=== PATIENT | female | born 1980 | race Caucasian/White ===

== ENCOUNTER 2016-09-06 20:47 | Emergency (ER) | payer SELFPAY | END 2016-09-06 23:38 | disposition home or self-care (01) | LOC: D.ER 20:47 | DX: S60.212A Contusion of left wrist, initial encounter (principal); V43.52XA Car driver injured in collision with other type car in traffic accident, initial encounter; Y93.89 Activity, other specified; Y92.410 Unspecified street and highway as the place of occurrence of the external cause; S50.12XA Contusion of left forearm, initial encounter; S63.502A Unspecified sprain of left wrist, initial encounter; F17.200 Nicotine dependence, unspecified, uncomplicated ==

== ENCOUNTER 2019-01-16 14:34 | Emergency (ER) | payer OTHER ==
[~2019-01-16] VITALS: Ht 157.5 cm; Wt 136.4 kg
[2019-01-16 14:40] VITALS: Ht 157.5 cm; Wt 136.4 kg
[2019-01-16] MEDS ORDERED: NEXIUM20 MG PO (14:42)
[2019-01-16] MEDS ORDERED: IBUPROFEN400 MG PO (14:42)
[2019-01-16] MEDS ORDERED: ULTRAM50 MG PO (15:21)
[2019-01-16 16:11] VITALS: BP 130/83
[2019-02-12] MEDS ORDERED: MUCINEX600 MG PO (08:10)
[2019-02-13 07:10] VITALS: Ht 157.5 cm; Wt 136.4 kg
== END 2019-01-16 16:12 | disposition home or self-care (01) ==
LOC: D.ER 14:34
DX: S83.91XA Sprain of unspecified site of right knee, initial encounter (principal); X50.1XXA Overexertion from prolonged static or awkward postures, initial encounter; Y93.9 Activity, unspecified; M25.461 Effusion, right knee

== ENCOUNTER → 2019-01-26 08:31 | Outpatient (CLI) | payer OTHER ==
[2019-01-16 14:40] VITALS: BMI 55.0
[~2019-01-26 08:31] MED LIST: IBUPROFEN400 MG PO; MUCINEX600 MG PO; NEXIUM20 MG PO; PERCOCET 5-3251 TAB PO; ULTRAM50 MG PO
[2019-02-13 07:10] VITALS: BMI 55.0
== END | disposition home or self-care (01) ==
LOC: D.MRI 08:31
PROVIDERS: ATTEND Nurse Practitioner Family
DX: S83.411A Sprain of medial collateral ligament of right knee, initial encounter (principal)

== ENCOUNTER 2019-02-13 06:20 | Day surgery (SDC) | payer OTHER ==
[2019-02-12 08:39] LABS: HEMATOCRIT 44.4 % (36.0-48.0); HEMOGLOBIN 14.7 g/dL (12-16); MCH 30.2 pg (26.0-34.0); MCHC 33.1 g/dL (31.0-37.0); MCV 91.4 fL (80.0-100.0); MEAN PLATELET VOLUME 10.2 fL (7.4-10.4); RBC 4.86 10x6/uL (4.00-5.40); RDW 13.1 % (11.5-14.5); WBC 9.1 10x3/uL (4.8-10.8)
[~2019-02-13] VITALS: Ht 157.5 cm; Wt 136.1 kg
[~2019-02-13 06:20] MED LIST changes: -PERCOCET 5-3251 TAB PO
[2019-02-13 07:10] VITALS: BP 148/94; Ht 157.5 cm; Wt 136.1 kg
--- NOTE | 2019-02-13 08:40 | NUR ---
TQ APPLIED BUT NOT USED DURING THE PROCEDURE
[2019-02-13] MEDS ORDERED: PERCOCET 5-3251 TAB PO (08:41)
--- NOTE | 2019-02-13 12:53 | NUR ---
1040 PT STATES HER PAIN LEVEL IN RIGHT KNEE IS INCREASING AND NOW RATES IT A 8 OUT OF 10 FROM A 5 UPON ARRIVAL TO OPS. 1049 PERCOCET GIVEN ORDERED 1120 PT STATES SHE IS GETTING MINIMAL RELIEF FROM PAIN MEDICATION, BUT HAS BEEN UP TO BATHROOM AND FEELS IT MAY TAKE A WHILE TO BECOME EFFECTIVE. HER PAIN LEVEL IS AT A 7 OUT OF 10 FROM AN 8 OUT OF 10. SHE STATES THAT SHE FEELS WELL ENOUGH TO GO HOME. 1122 IV DC'D. CATHETER TIP INTACT. NO BLEEDING AT SITE. BANDAID APPLIED.
--- NOTE | 2019-02-13 20:52 | OP ---
PATIENT NAME: MIKE MENDOZA MEDICAL RECORD: [id number] :82 LOCATION:[facility] ADMISSION DATE: SURGEON: VINCENT PALACIOS DO DATE OF OPERATION: 02/13/2019 PROCEDURE PERFORMED: Right knee arthroscopy with partial medial meniscectomy. 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 INDICATIONS: Ms. Mike Mendoza is a 38-year-old female, who has had right knee pain for some time. She had buckling and popping and locking. She is tired of dealing with the pain. MRI was done, which showed a posterior horn medial meniscus tear as well as chondromalacia of the medial femoral condyle. I informed her that we could trim out meniscus and it would help with the catching and locking, but it cannot do anything right now about the chondromalacia. She is aware of that and knew that she also would work on her weight to help. She was aware of the risks including infection, bleeding, damage to nerves or vessels, need for further surgery, continued knee pain, and possible replacement in the future, blood clots, and even , and she signed the consent. SURGEON: Vincent Palacios DO DESCRIPTION OF PROCEDURE: The patient was taken to the operative suite, laid in supine position, given general anesthetic and intubated. She was given 3 grams of Ancef preoperatively. The right lower extremity was then prepped and draped in sterile fashion. A time-out was performed. Everyone was in agreement with correct side, site, patient, and procedure. The incision then began over the anterolateral portal at the lateral knee and with an 11-blade scalpel. A trocar was then entered into the knee joint. Lights were turned on. The camera was turned on and began inspecting the suprapatellar pouch. Small loose bodies of cartilages were seen and those were taken out. The patella was seen to have some loose cartilage, but nothing that need to be debrided. The lateral gutter had a small loose body and that was taken out. Medial gutter was free of debris. The knee was then brought from extension to flexion and the medial compartment was entered. The medial portal was then established with 18-guage spinal needle and 11-blade scalpel. Trocar was entered in the knee and then a probe to probe the medial meniscus. There was a tear seen in the posterior horn of it in the midportion of the meniscus. A biter was then brought in and bit back to a stable point and then shaver as well. Once that was completed and back to a stable point, an abrasion chondroplasty was done on the medial femoral condyle to remove any loose cartilage. A grade IV chondromalacia was noted. Once that was completed, the probe was then entered the knee. The ACL was checked and seen to be in good positioning and very taut. The knee was then [id number]'ed and the lateral compartment was entered. The meniscus was probed. No tears were seen in the lateral meniscus and the cartilage on the lateral compartment looked to be in good shape. No chondromalacia was seen in that. I then inspected the trochlea and no chondromalacia was seen there either. No more loose bodies were seen in the suprapatellar pouch. Then the suction was turned on. Water was turned off. Excess fluid was removed from the knee. The portal sites were closed with 4-0 Monocryl in an inverted interrupted fashion. Steri-Strips, Adaptic, 4 x 4's, ABD, Webril, Connor wrap were then placed OPERATIVE REPORT [id number] MIKE MENDOZA on the knee. She was awakened and taken to recovery in stable condition. BLOOD LOSS: Minimal. COMPLICATIONS: None. TRANSINT:[id number] Voice Confirmation ID: [id number] DOCUMENT ID: [id number] VINCENT PALACIOS DO at 2052 CC: [id number] DICTATION DATE: 02/13/1941 MEDICAL SOCIAL CONSULTANT: 02/13/1919 [facility] 02/13/19 [facility] [address] [place] [address]
== END 2019-02-13 11:32 | disposition home or self-care (01) ==
LOC: D.OPS 06:20 → D.PAN 09:00 → D.OPS 11:32 → D.PAN 15:00 → D.OPS 15:00
PROVIDERS: Anesthesiology; ATTEND Orthopaedic Surgery
DX: S83.241A Other tear of medial meniscus, current injury, right knee, initial encounter (principal); X58.XXXA Exposure to other specified factors, initial encounter

== ENCOUNTER → 2019-05-15 09:53 | Outpatient (CLI) | payer OTHER ==
[2019-02-13 07:10] VITALS: BMI 55.0
[~2019-05-15 09:53] MED LIST changes: +PERCOCET 5-3251 TAB PO
== END | disposition home or self-care (01) ==
LOC: D.MRI 09:53
PROVIDERS: ATTEND Nurse Practitioner Family
DX: M54.16 Radiculopathy, lumbar region (principal)

== ENCOUNTER 2020-10-09 15:26 | Emergency (ER) | payer OTHER ==
[~2020-10-09] VITALS: Ht 157.5 cm; Wt 136.4 kg
[2020-10-09 15:38] VITALS: Ht 157.5 cm; Wt 136.4 kg
[2020-10-09 16:12] LABS: BASOPHILS 0.5 % (0-2); EOSINOPHILS 2.2 % (0-7); HEMATOCRIT 43.5 % (36.0-48.0); HEMOGLOBIN 14.7 g/dL (12-16); LYMPHOCYTES 29.9 % (15-50); MCH 29.8 pg (26.0-34.0); MCHC 33.8 g/dL (31.0-37.0); MEAN PLATELET VOLUME 8.2 fL (7.4-10.4); NEUTROPHILS 57.4 % (40-80); PLATELET COUNT 230 10x3/uL (130-400); RBC 4.94 10x6/uL (4.00-5.40); RDW 13.5 % (11.5-14.5); WBC 8.3 10x3/uL (4.8-10.8)
[2020-10-09 16:15] LABS: CALC OSMOLALITY 274 mosm/kg (275-300); CALCIUM 8.8 mg/dL (8.5-10.1); CARBON DIOXIDE 20.1 mmol/L (21.0-32.0); CHLORIDE - SERUM 104 mmol/L (98-107); CREATININE - SERUM 0.7 mg/dL (0.6-1.3); GLUCOSE 99 mg/dL (74-106); POTASSIUM - SERUM 3.4 mmol/L (3.5-5.1); SODIUM 138 mmol/L (136-145); UREA NITROGEN 10 mg/dL (7-18); eGFR NON AFRICAN AMERICAN > 90 mL/min (90-120)
[2020-10-09 16:21] LABS: ALBUMIN 3.4 g/dL (3.4-5.0); ALKALINE PHOSPHATASE 69 U/L (30-120); ALT (SGPT) 29 U/L (10-68); BILIRUBIN - TOTAL 0.28 mg/dL (0.2-1.3); PROTEIN - SERUM 7.7 g/dL (6.4-8.2)
[2020-10-09 16:22] LABS: LIPASE 25 U/L (73-393)
[2020-10-09 21:56] LABS: HCG SERUM NEGATIVE (NEGATIVE)
[2020-10-10 02:57] LABS: HCG URINE NEGATIVE (NEGATIVE)
[2020-10-10 03:10] LABS: BACTERIA FEW HPF (<MOD); BILIRUBIN NEGATIVE (NEGATIVE); KETONE 3+ mg/dL (< 1+); NITRITE NEGATIVE (NEGATIVE); SQUAMOUS EPITHELIAL 6 HPF (0-4); UROBILINOGEN NORMAL mg/dL (< 2); WHITE CELLS - URINE 2 HPF (0-4)
[2020-10-10] MEDS ORDERED: ZOFRAN ODT4 MG/UDTAB PO (03:23)
[2020-10-10 03:40] VITALS: BP 152/87
== END 2020-10-10 03:40 | disposition home or self-care (01) ==
LOC: D.ER 15:26
PROVIDERS: Emergency Medicine; Family Medicine
DX: R34 Anuria and oliguria (principal); E86.0 Dehydration; K52.9 Noninfective gastroenteritis and colitis, unspecified; K21.9 Gastro-esophageal reflux disease without esophagitis